=== PATIENT | female | born 1965 | race African-American/Black ===

== ENCOUNTER 2016-12-09 19:34 | Emergency (ER) | payer OTHER ==
[2016-12-09 19:55] VITALS: BP 153/112; PULSE 71; TEMP 97.8; BMI 35.9
--- NOTE | 2016-12-09 21:41 | PDOC ---
[id number]: LT KNEE PAIN/ALLERGIC REACTION Time Seen by Provider: 12/09/16 20:36 History Source: Patient Exam Limitations: No Limitations - History of Present Illness Initial Comments: 12/09/16 21:37 Chief complaint: Intermittent rash to hands, left wrist, left medial area and chest for 4 days also left knee pain with sensation of left knee going to give out for 2 weeks History of present illness: She is a 51-year-old female with a history of asthma , and hypertension and left knee arthroscopic surgery. Patient has had an itchy rash that comes and goes to her bilateral hands, left wrist, chest, and left medial knee for 4 days. She recalls that she ate Mexican food the night before she developed a rash. She also was using a cream called Capsaicin to her left medial knee during this time. Patient also reports having left medial knee pain with a sensation as if her knee is going to give out for the last 2 weeks. Patient reports having arthroscopic surgery with Dr. Hartman 2 years ago. Patient reports that she has been taking Benadryl without relief of itchiness. Patient denies any difficulty swallowing or breathing or any facial swelling. 12/09/16 23:21 Timing/Duration: intermittent Severity: moderate Associated Symptoms: reports: rash (rash pruritic chest, b/l hands, left wrist waxes and wanes for 4 days), other (left medial knee pain with it giving out at times') Past History - Past Medical History Allergies/Adverse Reactions: Allergies Allergy/AdvReac Type Severity Reaction Status Date / Time cephalexin monohydrate Allergy Verified 12/09/16 19:55 [From [employer]] Home Medications: Ambulatory Orders Aspirin [ASA -] 81 mg PO DAILY #0 tab.chew 05/13/13 Hydrochlorothiazide [Hctz -] 25 mg PO DAILY #0 tablet 05/13/13 Albuterol Sulfate Inhaler - [Ventolin HFA Inhaler -] 1 - 2 inh IH Q4H PRN Alprazolam [Xanax -] 0.25 mg PO DAILY 06/11/13 Potassium Chloride [K-Dur] 20 meq PO BID 06/13/13 Nifedipine ER [Procardia XL -] 30 mg PO BID 02/25/15 Losartan Potassium 25 mg PO DAILY 03/09/15 Losartan Potassium 50 mg PO HS 03/09/15 Pnv/Iron,Carb/Om-3/FA/Fat 1 [Multivitamin with Minerals Cap] 1 each PO DAILY Prednisone [Deltasone -] 20 mg PO BID #8 tablet MDD 2 12/09/16 Ranitidine [Zantac -] 150 mg PO BID #8 tablet MDD 2 12/09/16 Anemia: No Asthma: Yes Cancer: No Cardiac Disorders: No CVA: No COPD: No CHF: No Dementia: No Diabetes: No GI Disorders: No Disorders: No HTN: Yes Hypercholesterolemia: No Liver Disease: No Suicide Attempt (Hx): No Seizures: No Thyroid Disease: No - Surgical History Abdominal Surgery: No Appendectomy: No Cardiac Surgery: No Cholecystectomy: No Lung Surgery: No Neurologic Surgery: No Orthopedic Surgery: Yes (KNEE LEFT,CTR BILATERAL) - Psycho/Social/Smoking Cessation Hx Anxiety: No Suicidal Ideation: No Smoking Status: No Smoking History: Never smoked Have you smoked in the past 12 months: No Number of Cigarettes Smoked Daily: 0 Hx Alcohol Use: Yes (SOCIAL) Drug/Substance Use Hx: No Substance Use Type: None Hx Substance Use Treatment: No Review of Systems - Review of Systems Able to Perform ROS?: Yes Constitutional: No: Symptoms Reported HEENTM: No: Symptoms Reported Respiratory: No: Symptoms reported Cardiac (ROS): No: Symptoms Reported ABD/GI: No: Symptoms Reported : No: Symptoms Reported Musculoskeletal: Yes: Joint Pain (left medial knee pain, knee gives out at times for 2 days) Integumentary: Yes: Pruritus (b/l hands, left wrist, left medial knee, chest that comes and goes for 4 days ), Rash Neurological: No: Symptoms reported *Physical Exam - Vital Signs Last Vital Signs Temp Pulse Resp BP Pulse Ox 97.8 F 71 18 153/112 99 12/09/16 19:52 12/09/16 19:52 12/09/16 19:52 12/09/16 19:52 12/09/16 19:52 - Physical Exam General Appearance: Yes: Appropriately Dressed HEENT: positive: Normal ENT Inspection Neck: negative: Lymphadenopathy (R), Lymphadenopathy (L) Respiratory/Chest: positive: Lungs Clear, Normal Breath Sounds. negative: Chest Tender, Respiratory Distress Cardiovascular: positive: Regular Rhythm, Regular Rate, S1, S2 Extremity: positive: Normal Capillary Refill, Normal Inspection, Normal Range of Motion (left knee, no crepitus, negative anterior/posterior drawer) Integumentary: positive: Rash (minimally raised chest approx 4 cm diameter, macules tiny on fingers, left lateral wrist) Neurologic: positive: Fully Oriented, Alert, Normal Response, Responsive Procedures - Consent Consent obtained: From Patient - Splinting Splint Location: Left: Knee Pre-Made Type: knee immobilizer Medical Decision Making - Medical Decision Making 12/09/16 21:39 12/09/16 22:10 She is a 51-year-old female with a history of asthma, and hypertension and left knee arthroscopic surgery. Patient has had an itchy rash that comes and goes to her bilateral hands, left wrist, chest, and left medial knee for 4 days. She recalls that she ate Mexican food the night before she developed a rash. She also was using a cream called Capsaicin to her left medial knee during this time. Patient also reports having left medial knee pain with a sensation as if her knee is going to give out for the last 2 weeks. Patient reports having arthroscopic surgery with Dr. Hartman 2 years ago. Patient reports that she has been taking Benadryl without relief of itchiness. Patient denies any difficulty swallowing or breathing or any facial swelling. allergic urticaria left knee pain with instability of knee PLAN: Prednisone 60 mg by mouth now then 20 mg twice a day 4 days Zantac 150 mg by mouth now then twice a day 4 days Benadryl 25 mg by mouth now then every 4-6 hours as needed for itchiness Left knee immobilizer Patient to follow up with Dr. Hartman in 2 days 12/09/16 22:11 12/09/16 23:21 *DC/Admit/Observation/Transfer Diagnosis at time of Disposition: Allergic urticaria Knee instability Qualifiers: Laterality: left Qualified Code(s): M25.362 - Other instability, left knee - Discharge Dispostion Disposition: HOME Condition at time of disposition: Stable - Prescriptions Prescriptions: Prednisone [Deltasone -] 20 mg PO BID #8 tablet MDD 2 Ranitidine [Zantac -] 150 mg PO BID #8 tablet MDD 2 - Referrals Referrals: STAFF,NOT ON [Primary Care Provider] - Gaurang Hartman MD [Staff Physician] - Jarrod Rivas MD [Staff Physician] - - Patient Instructions Additional Instructions: FOLLOW UP orthopedist in 2 days Wear knee immobilizer during the day for stability to left leg Follow-up with your primary care provider within the next 2 days Follow-up with ear nose and throat Dr. Rivas for allergy testing Return here if any difficulty breathing or swallowing or any facial swelling Take Benadryl 25 mg every 4-6 hours as needed for itchiness may buy over-the- counter Patient voiced understanding of discharge instructions and all questions were answered
[2016-12-09] MEDS ORDERED: predniSONE 20 MG TABLET (UD) PO ONE (21:42)
[2016-12-09] MEDS ORDERED: RANITIDINE HCL 150 MG TABLET (FP) PO ONE (21:42)
[2016-12-09] MEDS ORDERED: diphenhydrAMINE HCL 25 MG CAPSULE (FP) PO ONE ×2 (21:42→21:45)
[2016-12-09] MEDS ORDERED: RANITIDINE HCL 150 MG TABLET (FP) ONE (21:44)
[2016-12-09] MEDS ORDERED: predniSONE 20 MG TABLET (UD) ONE (21:45)
== END 2016-12-09 22:22 | disposition home or self-care (01) ==
LOC: JERFT 19:34
PROC: 2W3MX1Z Immobilization of Left Lower Extremity using Splint (ICD-10-PCS; principal; 2016-12-09)
DX: L50.0 Allergic urticaria (principal); M25.362 Other instability, left knee; I10 Essential (primary) hypertension; J45.909 Unspecified asthma, uncomplicated
CPT/HCPCS: 29530; 99281-25

== ENCOUNTER 2017-06-21 16:45 | Emergency (ER) | payer OTHER ==
[2017-06-21 17:39] LABS: BASOPHIL 0.5 % (0-2.0); EOSINOPHIL 0.2 % (0-4.5); MCH 26.9 pg (25.7-33.7); MEAN CELL VOLUME 81.6 fl (80-96); MEAN PLT VOLUME 9.1 fl (7.5-11.1); NEUTROPHILS 75.6 % (42.8-82.8); PLATELET COUNT 288 K/MM3 (134-434); RDW 17.1 % (11.6-15.6); WHITE BLOOD COUNT 7.3 K/mm3 (4.0-10.0)
[2017-06-21] MEDS ORDERED: SODIUM CHLORIDE 500 ML IV STA (17:41)
[2017-06-21 17:42] VITALS: TEMP 98.1; BMI 39.3
[2017-06-21 18:02] LABS: INR 1.15 (0.82-1.09); PROTHROMBIN TIME (PATIENT) 12.7 SEC (9.98-11.88)
[2017-06-21 18:05] LABS: ALBUMIN 3.8 g/dl (3.4-5.0); ANION GAP 4 (8-16); BILIRUBIN,TOTAL 0.3 mg/dL (0.2-1.0); CALCIUM 8.9 mg/dL (8.5-10.1); CO2 29 mmol/L (21-32); CREATININE 0.9 mg/dL (0.55-1.02); GLUCOSE,RANDOM 103 mg/dL (74-106); SGOT/AST 16 U/L (15-37); SGPT/ALT 22 U/L (12-78); TOT PROT 7.6 g/dl (6.4-8.2)
[2017-06-21 18:07] LABS: ALK PHOS 76 U/L (45-117); CPK 235 IU/L (26-192); TROPONIN I 0.03 ng/ml (0.00-0.05)
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
[2017-06-21] MEDS ORDERED: POTASSIUM CHLORIDE TABS 20 MEQ TABLET.ER (FP) PO ONE ×2 (18:35→18:50)
[2017-06-21 20:20] VITALS: BP 154/106; PULSE 65
--- NOTE | 2017-06-21 21:38 | PDOC ---
*Physical Exam - Vital Signs Last Vital Signs Temp Pulse Resp BP Pulse Ox 98.1 F 65 22 154/106 100 06/21/17 17:25 06/21/17 20:19 06/21/17 20:19 06/21/17 20:19 06/21/17 20:19 ED Treatment Course - LABORATORY CBC & Chemistry Diagram: 06/21/17 17:30 06/21/17 17:30 - ADDITIONAL ORDERS Additional order review: Laboratory Results 06/21/17 06/21/17 17:30 17:30 INR 1.15 H Sodium 141 Potassium 3.2 L Chloride 108 H Carbon Dioxide 29 Anion Gap 4 L BUN 11 Creatinine 0.9 D Creat Clearance w eGFR > 60 Random Glucose 103 Calcium 8.9 Total Bilirubin 0.3 D AST 16 D ALT 22 Alkaline Phosphatase 76 Creatine Kinase 235 H Creatine Kinase Index CK-MB (CK-2) < 1.000 Troponin I 0.03 Total Protein 7.6 Albumin 3.8 06/21/17 17:30 RBC 4.45 MCV 81.6 MCHC 33.0 RDW 17.1 H MPV 9.1 Neutrophils % 75.6 Lymphocytes % 18.6 D Monocytes % 5.1 Eosinophils % 0.2 Basophils % 0.5 - Medications Given in the ED: ED Medications Discontinued Medications Generic Name Dose Route Start Last Admin Trade Name Chrisq PRN Reason Stop Dose Admin Sodium Chloride 500 mls @ 500 mls/hr 06/21/17 17:41 06/21/17 18:23 Normal Saline - IV 06/21/17 18:40 500 mls/hr ASDIR STA Administration Potassium Chloride 40 meq 06/21/17 18:35 06/21/17 19:15 K-Dur - PO 06/21/17 18:36 40 meq ONCE ONE Administration Medical Decision Making - Medical Decision Making 06/21/17 21:37 agree with care from Dr. Lucien Atkinson. *DC/Admit/Observation/Transfer Diagnosis at time of Disposition: Vasovagal episode - Discharge Dispostion Disposition: HOME Condition at time of disposition: Stable Admit: No - Referrals Referrals: Etta Sanz MD [Primary Care Provider] - - Patient Instructions Printed Discharge Instructions: DI for Syncope in Adults (Fainting) Additional Instructions: The workup for your syncopal episode did not reveal a cardiac etiology. Given the history of the episode in light of the negative workup, it seems likely that it was vasovagal. In addition, the XR of your left knee showed no evidence of fracture. At home, drink plenty of fluids and take it easy for a day or two. If you develop new onset chest pain or have any concerning symptoms, return to the ED. Please follow up with your PMD within the next few days. - Post Discharge Activity
--- NOTE | 2017-06-22 09:30 | EKG ---
Test Reason : Blood Pressure : / mmHG Vent. Rate : 070 BPM Atrial Rate : 070 BPM P-R Int : 148 ms QRS Dur : 088 ms QT Int : 416 ms P-R-T Axes : 003 -23 021 degrees QTc Int : 449 ms POOR DATA QUALITY, INTERPRETATION MAY BE ADVERSELY AFFECTED NORMAL SINUS RHYTHM MINIMAL VOLTAGE CRITERIA FOR LVH, MAY BE NORMAL VARIANT NONSPECIFIC T WAVE ABNORMALITY ABNORMAL ECG WHEN COMPARED WITH ECG OF 06-MAR-2015 14:11, NONSPECIFIC T WAVE ABNORMALITY NOW EVIDENT IN ANTERIOR LEADS Confirmed by MARIAELENA GONCALVES MD ([id number]) on 06/22/2017 9:30:00 AM Referred By: Confirmed By:MARIAELENA GONCALVES MD
== END 2017-06-21 21:47 | disposition home or self-care (01) ==
LOC: JER 16:45
PROC: 3E0337Z Introduction of Electrolytic and Water Balance Substance into Peripheral Vein, Percutaneous Approach (ICD-10-PCS; principal; 2017-06-21)
DX: R55 Syncope and collapse (principal); I10 Essential (primary) hypertension; F41.0 Panic disorder [episodic paroxysmal anxiety]; J45.909 Unspecified asthma, uncomplicated
CPT/HCPCS: 36415; 71010-TC; 73560-TC-LT; 80053; 82553; 84484; 85025; 85610; 93005; 93010; 96360; 99285-25

== ENCOUNTER 2017-07-17 19:41 | Emergency (ER) | payer OTHER ==
[2017-07-17 19:54] VITALS: TEMP 98.3; BMI 38.4
--- NOTE | 2017-07-17 20:48 | PDOC ---
History of Present Illness - General History Source: Patient Exam Limitations: No Limitations - History of Present Illness Initial Comments: 07/17/17 20:50 Patient is a 51 year old female with significant past medical history of HTN, obesity, poor dentition presenting with pain and swelling at the right side of the face. Patient notes that the symptoms are intermittent. She reports hx of syncope in the past. She also notes that she had an episode of lightheadedness last sunday and reports associated flashing lights, dizziness and got a cab and went home and was assisted by her daughter to get inside the house. Patient saw Dr. Oswald the next day who called meat soaker Dr. Benoit who scheduled a nuclear stress test on July 23, 2017. Patient is now taking new medication as per meat soaker. Patient reports numbness and fullness under the right eye with associated pain. 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 PSH - left knee, bilateral carpal tunnel <Paulette Patel - Last Filed: 07/17/17 20:50> <Sarah Leal - Last Filed: 07/18/17 01:27> - General Chief Complaint: CVA/TIA Stated Complaint: DROOPING FACE Time Seen by Provider: 07/17/17 20:06 Past History <Paulette Patel - Last Filed: 07/17/17 20:50> - Past Medical History Anemia: No Asthma: Yes Cancer: No Cardiac Disorders: No CVA: No COPD: No CHF: No Dementia: No Diabetes: No GI Disorders: No Disorders: No HTN: Yes Hypercholesterolemia: No Liver Disease: No Psychiatric Problems: Yes (ANXIETY) Suicide Attempt (Hx): No Seizures: No Thyroid Disease: No - Surgical History Abdominal Surgery: No Appendectomy: No Cardiac Surgery: No Cholecystectomy: No Lung Surgery: No Neurologic Surgery: No Orthopedic Surgery: Yes (KNEE LEFT,CTR BILATERAL) - Psycho/Social/Smoking Cessation Hx Anxiety: No Suicidal Ideation: No Smoking Status: No Smoking History: Never smoked Have you smoked in the past 12 months: No Number of Cigarettes Smoked Daily: 0 Information on smoking cessation initiated: No Hx Alcohol Use: No Drug/Substance Use Hx: No Substance Use Type: None Hx Substance Use Treatment: No <Sarah Leal - Last Filed: 07/18/17 01:27> - Past Medical History Allergies/Adverse Reactions: Allergies Allergy/AdvReac Type Severity Reaction Status Date / Time cephalexin monohydrate AdvReac Severe Nausea Verified 06/21/17 17:11 [From [facility]] Home Medications: Ambulatory Orders Aspirin [ASA -] 81 mg PO DAILY #0 tab.chew 05/13/13 Hydrochlorothiazide [Hctz -] 25 mg PO DAILY #0 tablet 05/13/13 Albuterol Sulfate Inhaler - [Ventolin HFA Inhaler -] 1 - 2 inh IH Q4H PRN Alprazolam [Xanax -] 0.25 mg PO DAILY 06/11/13 Potassium Chloride [K-Dur] 20 meq PO BID 06/13/13 Nifedipine ER [Procardia XL -] 30 mg PO BID 02/25/15 Ranitidine [Zantac -] 150 mg PO BID #8 tablet MDD 2 12/09/16 Hydralazine HCl [Apresoline -] 25 mg PO TID 07/17/17 Isosorbide Mononitrate [Imdur -] 30 mg PO DAILY 07/17/17 Review of Systems - Review of Systems Able to Perform ROS?: Yes Comments:: 07/17/17 20:51 CONSTITUTIONAL: Absent: fever, chills, diaphoresis, generalized weakness, malaise, loss of appetite HEENT: present: right sided facial pain and swelling Absent: rhinorrhea, nasal congestion, throat pain, throat swelling, difficulty swallowing, mouth swelling, ear pain, eye pain, visual Changes CARDIOVASCULAR: Absent: chest pain, syncope, palpitations, irregular heart rate, lightheadedness , peripheral edema RESPIRATORY: Absent: cough, shortness of breath, dyspnea with exertion, orthopnea, wheezing, stridor, hemoptysis GASTROINTESTINAL: Absent: abdominal pain, abdominal distension, nausea, vomiting, diarrhea, constipation, melena, hematochezia GENITOURINARY: Absent: dysuria, frequency, urgency, hesitancy, hematuria, flank pain, genital pain MUSCULOSKELETAL: Absent: myalgia, arthralgia, joint swelling SKIN: Absent: rash, itching, pallor HEMATOLOGIC/IMMUNOLOGIC: Absent: easy bleeding, easy bruising, lymphadenopathy, frequent infections ENDOCRINE: Absent: unexplained weight gain, unexplained weight loss, heat intolerance, cold intolerance NEUROLOGIC: Absent: headache, focal weakness or paresthesias, dizziness, unsteady gait, seizure, mental status changes, bladder or bowel incontinence PSYCHIATRIC: Absent: anxiety, depression, suicidal or homicidal ideation, hallucinations. <Paulette Patel - Last Filed: 07/17/17 20:50> *Physical Exam - Vital Signs Last Vital Signs Temp Pulse Resp BP Pulse Ox 98.3 F 83 19 153/114 99 07/17/17 19:52 07/17/17 19:52 07/17/17 19:52 07/17/17 19:52 07/17/17 19:52 - Physical Exam Comments: 07/17/17 20:51 GENERAL: Well developed, well nourished. Awake and alert. No acute distress. HEENT: (+)Mild right zygomatic fulness, Face is symmetrical, No obvious facial droop. Normocephalic, atraumatic. PERRLA, EOMI. No conjunctival pallor. Sclera are non- icteric. Moist mucous membranes. Oropharynx is clear. NECK: Supple. Full ROM. No JVD. Carotid pulses 2+ and symmetric, without bruits. No thyromegaly. No lymphadenopathy. CARDIOVASCULAR: Regular rate and rhythm. No murmurs, rubs, or gallops. Distal pulses are 2+ and symmetric. PULMONARY: No evidence of respiratory distress. Lungs clear to auscultation bilaterally. No wheezing, rales or rhonchi. ABDOMINAL: +obese. Soft. Non-tender. Non-distended. No rebound or guarding. No organomegaly. Normoactive bowel sounds. MUSCULOSKELETAL Normal range of motion at all joints. No bony deformities or tenderness. No CVA tenderness. EXTREMITIES: No cyanosis. No clubbing. No edema. No calf tenderness. SKIN: Warm and dry. Normal capillary refill. No rashes. No jaundice. NEUROLOGICAL: Alert, awake, appropriate. Cranial nerves 2-12 intact. PSYCHIATRIC: Cooperative. Good eye contact. Appropriate mood and affect. <Paulette Patel - Last Filed: 07/17/17 20:50> - Vital Signs Last Vital Signs Temp Pulse Resp BP Pulse Ox 98.3 F 83 19 153/114 99 07/17/17 19:52 07/17/17 19:52 07/17/17 19:52 07/17/17 19:52 07/17/17 19:52 <Sarah Leal - Last Filed: 07/18/17 01:27> ED Treatment Course - LABORATORY CBC & Chemistry Diagram: 07/17/17 21:05 07/17/17 21:05 <Sarah Leal - Last Filed: 07/18/17 01:27> Medical Decision Making - Medical Decision Making 07/18/17 00:40 51-year-old female presents with history of hypertension, obesity. She said that she had an episode of flashing lights and weakness last week. She saw her primary doctor, Dr. Saldaña for the next day. He appointment with Dr. Dubois for a stress test on July 23. She presents this evening with only with no gross focal neural deficits. She does have some mild right facial swelling and complaining of pain in that area. She has no ataxia, she has no confusion, she has no slurred speech, extremity weakness, no current tingling and numbness in her extremities. No field cuts or diplopia NIH stroke scale is 0 CAT scan of the head was negative for any hemorrhage, negative for mass, negative for infarct, negative for edema or shift or herniation. Osseous structures are intact <Sarah Leal - Last Filed: 07/18/17 01:27> *DC/Admit/Observation/Transfer - Attestations Scribe Attestion: 07/17/17 20:55 Documentation prepared by SHIVANI Lazar, acting as special forces medical sergeant for Sarah Leal MD. <Paulette Patel - Last Filed: 07/17/17 20:50> <Sarah Leal - Last Filed: 07/18/17 01:27> Diagnosis at time of Disposition: Essential hypertension, Dental abscess, Hypokalemia Urinary tract infection Qualifiers: Urinary tract infection type: site unspecified Hematuria presence: without hematuria Qualified Code(s): N39.0 - Urinary tract infection, site not specified - Discharge Dispostion Disposition: HOME Condition at time of disposition: Stable - Referrals Referrals: Jhonathan Oswald [Primary Care Provider] - - Patient Instructions Printed Discharge Instructions: DI for High Blood Pressure, DI for Tooth Decay , DI for Hypokalemia, DI for Urinary Tract Infection (UTI) Additional Instructions: Please keep your appointment with your doctor Follow up with your dentist specialty department supervisor your antibiotics at your pharmacy Please continue to take your blood pressure medications
[2017-07-17 21:10] LABS: EOSINOPHIL 0.5 % (0-4.5); MCH 26.5 pg (25.7-33.7); MCHC 32.7 g/dl (32.0-36.0); MEAN CELL VOLUME 80.9 fl (80-96); MEAN PLT VOLUME 8.8 fl (7.5-11.1); PLATELET COUNT 309 K/MM3 (134-434); RDW 16.9 % (11.6-15.6); WHITE BLOOD COUNT 7.9 K/mm3 (4.0-10.0)
[2017-07-17 21:15] LABS: URINE APPEARANCE CLOUDY; URINE BILIRUBIN NEGATIVE (NEGATIVE); URINE BLOOD 2+ (NEGATIVE); URINE COLOR YELLOW; URINE GLUCOSE (UA) NEGATIVE (NEGATIVE); URINE KETONE NEGATIVE (NEGATIVE); URINE NITRITE NEGATIVE (NEGATIVE); URINE UROBILINOGEN NEGATIVE mg/dL (0.2-1.0)
[2017-07-17 21:23] LABS: URINE LEUK ESTERASE 3+ (NEGATIVE); URINE PROTEIN 1+ (NEGATIVE)
[2017-07-17 21:35] LABS: URINE BACTERIA MODERATE /hpf (NONE SEEN); URINE MUCUS RARE; URINE RBC 5 /hpf (0-3); URINE WBC 76 /hpf (3-5)
[2017-07-17 21:37] LABS: ALBUMIN 3.7 g/dl (3.4-5.0); ANION GAP 7 (8-16); BILIRUBIN,TOTAL 0.3 mg/dL (0.2-1.0); CALCIUM 8.8 mg/dL (8.5-10.1); CO2 30 mmol/L (21-32); CREATININE 0.9 mg/dL (0.55-1.02); GLUCOSE,RANDOM 85 mg/dL (74-106); SGOT/AST 10 U/L (15-37); SGPT/ALT 21 U/L (12-78); TOT PROT 7.4 g/dl (6.4-8.2)
[2017-07-17 21:40] LABS: ALK PHOS 80 U/L (45-117); CPK 190 IU/L (26-192); TROPONIN I 0.04 ng/ml (0.00-0.05)
[2017-07-17 21:43] LABS: INR 1.09 (0.82-1.09)
[2017-07-18] MEDS ORDERED: POTASSIUM CHLORIDE TABS 20 MEQ TABLET.ER (FP) PO ONE ×2 (00:19→00:24)
[2017-07-18] MEDS ORDERED: hydrALAZINE HCL 25 MG TABLET (FP) PO ONE (00:49)
[2017-07-18 00:51] VITALS: BP 155/94; PULSE 68
[2017-07-18] MEDS ORDERED: hydrALAZINE HCL 25 MG TABLET (FP) ONE (00:53)
[2017-07-18] MEDS ORDERED: SULFAMETHOXAZOLE/TRIMETHOPRIM 800MG/160MG D.S. TABLET ONE (01:57)
[2017-07-18] MEDS ORDERED: SULFAMETHOXAZOLE/TRIMETHOPRIM 800MG/160MG D.S. TABLET PO ONE (02:00)
[2017-07-18] MEDS ORDERED: NIFEdipine 10 MG CAPSULE (FP) PO SCH (06:00)
--- NOTE | 2017-07-18 14:58 | EKG ---
Test Reason : Blood Pressure : / mmHG Vent. Rate : 072 BPM Atrial Rate : 072 BPM P-R Int : 148 ms QRS Dur : 086 ms QT Int : 374 ms P-R-T Axes : 008 -14 -08 degrees QTc Int : 409 ms NORMAL SINUS RHYTHM MINIMAL VOLTAGE CRITERIA FOR LVH, MAY BE NORMAL VARIANT POSSIBLE ANTERIOR INFARCT , AGE UNDETERMINED ABNORMAL ECG WHEN COMPARED WITH ECG OF 21-JUN-2017 16:59, NO SIGNIFICANT CHANGE WAS FOUND Confirmed by PATRICIA TERRY MD ([id number]) on 07/18/2017 2:58:21 PM Referred By: Confirmed By:PATRICIA TERYR MD
== END 2017-07-18 02:05 | disposition home or self-care (01) ==
LOC: JER 19:41
DX: I10 Essential (primary) hypertension (principal); N39.0 Urinary tract infection, site not specified; E87.6 Hypokalemia; K04.7 Periapical abscess without sinus; F41.9 Anxiety disorder, unspecified; E66.9 Obesity, unspecified; Z68.38 Body mass index [BMI] 38.0-38.9, adult
CPT/HCPCS: 36415; 70450-TC; 70486-TC; 80053; 81003; 81015; 82553; 84484; 84703; 85025; 85610; 86618; 93005; 93010; 99284-25

== ENCOUNTER 2018-12-15 15:59 | Emergency (ER) | payer OTHER ==
[2018-12-15 16:31] VITALS: BP 161/97; PULSE 82; TEMP 97.9; BMI 40.3
[2018-12-15] MEDS ORDERED: CYCLOBENZAPRINE HCL 10 MG TABLET (FP) PO ONE (18:02)
[2018-12-15] MEDS ORDERED: KETOROLAC TROMETHAMINE 60 MG/2 ML VIAL IM ONE (18:02)
--- NOTE | 2018-12-15 18:09 | PDOC ---
History of Present Illness - General Chief Complaint: Pain Stated Complaint: BACK / NECK PAIN Time Seen by Provider: 12/15/18 17:56 History Source: Patient Exam Limitations: Clinical Condition - History of Present Illness Initial Comments: 12/15/18 18:03 Patient with no significant with no significant PMhx present with complains of severe pains to right posterior shoulder and upper after returning from vacation yesterday and carrying her luggage. report taking motrin and aleve but pain still persists. Denies numbness and tingling sensation. Denies previous shoulder injury. Denies any other symptoms Timing/Duration: 24 hours Past History - Past Medical History Allergies/Adverse Reactions: Allergies Allergy/AdvReac Type Severity Reaction Status Date / Time cephalexin monohydrate AdvReac Severe Nausea Verified 12/15/18 16:31 [From [email or web address]] Home Medications: Ambulatory Orders Aspirin [ASA -] 81 mg PO DAILY #0 tab.chew 05/13/13 Hydrochlorothiazide [Hctz -] 25 mg PO DAILY #0 tablet 05/13/13 Albuterol Sulfate Inhaler - [Ventolin HFA Inhaler -] 1 - 2 inh IH Q4H PRN Alprazolam [Xanax -] 0.25 mg PO DAILY 06/11/13 Potassium Chloride [K-Dur] 20 meq PO BID 06/13/13 Nifedipine ER [Procardia XL -] 30 mg PO BID 02/25/15 Ranitidine [Zantac -] 150 mg PO BID #8 tablet MDD 2 12/09/16 Isosorbide Mononitrate [Imdur -] 30 mg PO DAILY 07/17/17 hydrALAZINE HCL [Apresoline -] 25 mg PO TID 07/17/17 Sulfamethoxazole/Trimethoprim [Bactrim Ds -] 1 tab PO BID #14 tablet 07/18/17 Amoxicillin/Potassium Clav [Augmentin 875-125 Tablet] 1 each PO ASDIR 12/15/18 Methocarbamol [Robaxin -] 500 mg PO TID PRN #21 tablet 12/15/18 Methylprednisolone [Medrol Dose Matthew] 4 mg PO ASDIR #21 tablet 12/15/18 Anemia: No Asthma: Yes Cancer: No Cardiac Disorders: No CVA: No COPD: No CHF: No Dementia: No Diabetes: No GI Disorders: No Disorders: No HTN: Yes Hypercholesterolemia: No Liver Disease: No Psychiatric Problems: Yes (ANXIETY) Seizures: No Thyroid Disease: No - Surgical History Abdominal Surgery: No Appendectomy: No Cardiac Surgery: No Cholecystectomy: No Lung Surgery: No Neurologic Surgery: No Orthopedic Surgery: Yes (KNEE LEFT,CTR BILATERAL) - Suicide/Smoking/Psychosocial Hx Smoking Status: No Smoking History: Never smoked Have you smoked in the past 12 months: No Number of Cigarettes Smoked Daily: 0 Hx Alcohol Use: No Drug/Substance Use Hx: No Substance Use Type: None Hx Substance Use Treatment: No Review of Systems - Review of Systems Able to Perform ROS?: Yes Is the patient limited Kazakh proficient: No Constitutional: No: Weakness HEENTM: No: Symptoms Reported Respiratory: No: Symptoms reported ABD/GI: No: Symptoms Reported Musculoskeletal: Yes: See HPI, Muscle Pain (posterior right shoulder and upper arm), Neck Pain (lateral right side of neck). No: Muscle Weakness All Other Systems: Reviewed and Negative *Physical Exam - Vital Signs Last Vital Signs Temp Pulse Resp BP Pulse Ox 97.9 F 82 18 161/97 97 12/15/18 16:27 12/15/18 16:27 12/15/18 16:27 12/15/18 16:27 12/15/18 16:27 - Physical Exam General Appearance: Yes: Nourished, Appropriately Dressed. No: Apparent Distress HEENT: positive: Normal ENT Inspection Neck: positive: Supple. negative: Tender, Trachea midline Respiratory/Chest: negative: Respiratory Distress, Accessory Muscle Use Musculoskeletal: positive: Normal Inspection, Other (moderate point tenderness over spine of right scapula and lateral deltoid of right shoulder. 5/5 muscle strength of right shoulder. negative arm drop test of right shoulder). negative : Decreased Range of Motion Extremity: positive: Normal Inspection, Normal Range of Motion Neurologic: positive: Fully Oriented, Alert Moderate Sedation - Procedure Monitoring Vital Signs: Procedure Monitoring Vital Signs Temperature 97.9 F 12/15/18 16:27 Pulse Rate 82 12/15/18 16:27 Respiratory Rate 18 12/15/18 16:27 Blood Pressure 161/97 12/15/18 16:27 O2 Sat by Pulse Oximetry (%) 97 12/15/18 16:27 ED Treatment Course - RADIOLOGY Radiology Studies Ordered: Category Date Time Status HUMERUS-RIGHT [RAD] Stat Radiology 12/15/18 18:02 Ordered SHOULDER-RIGHT [RAD] Stat Radiology 12/15/18 18:02 Ordered Medical Decision Making - Medical Decision Making 12/15/18 18:12 Patient with no significant with no significant PMhx present with complains of severe pains to right posterior shoulder and upper after returning from vacation yesterday and carrying her luggage. report taking motrin and aleve but pain still persists. Exam significant for tenderness to posterior spine of scapula and deltoid muscle of right shoulder with no weakness to shoulder on exam. Toradol 60mg IM and flexiril 10mg PO ordered. X-rays of right shoulder and humerus ordered with r/o any acute Pathology. symptoms likely shoulder strain and pt will be discharged on NSAIDS and muscle relaxer with orthopedics f/u if negative x-rays 12/15/18 18:28 x-ray of shoulder and humerus shows no acute pathology. symptoms likely muscle strain and stable for discharge with orthopedics follow-u *DC/Admit/Observation/Transfer Diagnosis at time of Disposition: Strain of right shoulder Qualifiers: Encounter type: initial encounter Qualified Code(s): S46.911A - Strain of unspecified muscle, fascia and tendon at shoulder and upper arm level, right arm , initial encounter - Discharge Dispostion Disposition: HOME Condition at time of disposition: Stable Decision to Admit order: No - Prescriptions Prescriptions: Methocarbamol [Robaxin -] 500 mg PO TID PRN #21 tablet PRN Reason: shoulder pain Methylprednisolone [Medrol Dose Matthew] 4 mg PO ASDIR #21 tablet - Referrals Referrals: Jozef Mathews DO [Staff Physician] - - Patient Instructions Printed Discharge Instructions: Shoulder Sprain Additional Instructions: Your x-rays shows no dislocation . symptoms is likely from muscle strain. Take medications as prescribed. continue with heat therapy as needed. follow-up with referred orthopedics if symptoms persist for more than 4 days - Post Discharge Activity
[2018-12-15] MEDS ORDERED: CYCLOBENZAPRINE HCL 10 MG TABLET (FP) ONE (18:14)
[2018-12-15] MEDS ORDERED: KETOROLAC TROMETHAMINE 60 MG/2 ML VIAL ONE (18:14)
== END 2018-12-15 18:49 | disposition home or self-care (01) ==
LOC: JERFT 15:59
PROC: 3E0233Z Introduction of Anti-inflammatory into Muscle, Percutaneous Approach (ICD-10-PCS; principal; 2018-12-15)
DX: S46.811A Strain of other muscles, fascia and tendons at shoulder and upper arm level, right arm, initial encounter (principal); X50.0XXA Overexertion from strenuous movement or load, initial encounter; Y93.89 Activity, other specified; Y92.89 Other specified places as the place of occurrence of the external cause; Y99.8 Other external cause status; I10 Essential (primary) hypertension; Z87.09 Personal history of other diseases of the respiratory system; Z86.59 Personal history of other mental and behavioral disorders
CPT/HCPCS: 73030-TC-RT-FY; 73060-TC-RT-FY; 99281-25

== ENCOUNTER 2019-02-03 21:03 | Observation (INO) | payer OTHER ==
--- NOTE | 2019-02-03 22:35 | PDOC ---
History of Present Illness - General Chief Complaint: Chest Pain Stated Complaint: TIGHTNESS IN CHEST - History of Present Illness Initial Comments: The pt is a 53F w/ a history of HTN, asthma, and insomnia who presents for evaluation of 10 days of acute on chronic shortness of breath. The pt reports that she has been experiencing increasing RHODES w/ occasional associated chest tightness/pressure. States that she has been using her home inhaler and nebulizer with minimal relief. At baseline, the pt is able to climb 1 flight of stairs before resting but is now having to rest mid-flight. Endorses dry cough. She also reports intermittent episodes of dizziness which she thinks may be associated with her HTN medications. However, her regimen has been difficult to establish and she and her PCP are actively working to find the most efficacious regimen. Denies falls or LOC. Denies chest pain or SOB being associated with dizziness episodes. Endorses intermittent subjective fevers but also reports being pre-menopausal. States that her son had PNA recently and is also concerned she may have PNA as well. PCP: Dr. Oswald Cardiology: Dr. Benoit 02/03/19 22:24 Past History - Past Medical History Allergies/Adverse Reactions: Allergies Allergy/AdvReac Type Severity Reaction Status Date / Time cephalexin monohydrate AdvReac Severe Nausea Verified 02/03/19 21:10 [From [facility]] Home Medications: Ambulatory Orders Aspirin [ASA -] 81 mg PO DAILY #0 tab.chew 05/13/13 Hydrochlorothiazide [Hctz -] 25 mg PO DAILY #0 tablet 05/13/13 Albuterol Sulfate Inhaler - [Ventolin HFA Inhaler -] 1 - 2 inh IH Q4H PRN Alprazolam [Xanax -] 0.25 mg PO DAILY 06/11/13 Potassium Chloride [K-Dur] 20 meq PO BID 06/13/13 Nifedipine ER [Procardia XL -] 30 mg PO BID 02/25/15 Ranitidine [Zantac -] 150 mg PO BID #8 tablet MDD 2 12/09/16 Isosorbide Mononitrate [Imdur -] 30 mg PO DAILY 07/17/17 hydrALAZINE HCL [Apresoline -] 25 mg PO TID 07/17/17 Sulfamethoxazole/Trimethoprim [Bactrim Ds -] 1 tab PO BID #14 tablet 07/18/17 Amoxicillin/Potassium Clav [Augmentin 875-125 Tablet] 1 each PO ASDIR 12/15/18 Methocarbamol [Robaxin -] 500 mg PO TID PRN #21 tablet 12/15/18 Methylprednisolone [Medrol Dose Matthew] 4 mg PO ASDIR #21 tablet 12/15/18 Anemia: No Asthma: Yes Cancer: No Cardiac Disorders: No CVA: No COPD: No CHF: No Dementia: No Diabetes: No GI Disorders: No Disorders: No HTN: Yes Hypercholesterolemia: No Liver Disease: No Psychiatric Problems: Yes (ANXIETY) Seizures: No Thyroid Disease: No - Surgical History Abdominal Surgery: No Appendectomy: No Cardiac Surgery: No Cholecystectomy: No Lung Surgery: No Neurologic Surgery: No Orthopedic Surgery: Yes (KNEE LEFT,CTR BILATERAL) - Suicide/Smoking/Psychosocial Hx Smoking Status: No Smoking History: Never smoked Have you smoked in the past 12 months: No Number of Cigarettes Smoked Daily: 0 Information on smoking cessation initiated: No Hx Alcohol Use: Yes Drug/Substance Use Hx: No Substance Use Type: None Hx Substance Use Treatment: No Review of Systems - Review of Systems Able to Perform ROS?: Yes Comments:: GENERAL/CONSTITUTIONAL: No chills. No weakness HEAD, EYES, EARS, NOSE AND THROAT: No change in vision. No ear pain or discharge. No sore throat CARDIOVASCULAR: +SOB RESPIRATORY: Denies hemoptysis GASTROINTESTINAL: No vomiting, diarrhea or constipation GENITOURINARY: No dysuria, frequency, or change in urination MUSCULOSKELETAL: No joint or muscle swelling or pain. No neck or back pain SKIN: No rash NEUROLOGIC: No headache, vertigo, loss of consciousness, or change in strength/ sensation ENDOCRINE: +polyuria, but most recent screen for DM neg and on HCTZ PRN HEMATOLOGIC/LYMPHATIC: No anemia, easy bleeding, or history of blood clots ALLERGIC/IMMUNOLOGIC: No hives or skin allergy 02/03/19 22:35 Is the patient limited Armenian proficient: No *Physical Exam - Vital Signs Last Vital Signs Temp Pulse Resp BP Pulse Ox 97.8 F 68 18 173/85 H 98 02/03/19 21:07 02/03/19 21:07 02/03/19 21:07 02/03/19 21:07 02/03/19 21:07 - Physical Exam Comments: GENERAL: Awake, alert, and oriented to person/place/time, in no acute distress HEAD: No signs of trauma, normocephalic, atraumatic EYES: PERRLA, EOMI, sclera anicteric, conjunctiva clear ENT: Hearing grossly normal, b/l TMs normal with small amount of cotton in each auditory canal, nares patent, oropharynx clear without exudates. Moist mucosa LUNGS: No distress, speaks full sentences, clear to auscultation bilaterally HEART: Regular rate and rhythm, normal S1 and S2, no murmurs appreciated, peripheral pulses normal and equal bilaterally ABDOMEN: Soft, nontender, normoactive bowel sounds. No guarding, no rebound. No masses EXTREMITIES: Normal inspection, Normal range of motion, no edema. No clubbing or cyanosis NEUROLOGICAL: Cranial nerves II through XII grossly intact. Normal speech, normal gait, no focal sensorimotor deficits SKIN: Warm, Dry 02/03/19 22:37 ED Treatment Course - LABORATORY CBC & Chemistry Diagram: 02/03/19 22:35 02/03/19 22:35 - RADIOLOGY Radiology Studies Ordered: Category Date Time Status CHEST PA & LAT [RAD] Stat Radiology 02/03/19 22:22 Ordered Medical Decision Making - Medical Decision Making The pt is a 53F w/ a history of HTN, asthma, obesity, and anxiety who presents for 10 days of acute on chronic RHODES w/ intermittent associated chest tightness that is not the exact same as her usual asthma tightness. Symptoms not alleviated by inhaler and nebulizer. ED Course CMP, CBC, Trop I, D-dimer CXR ECG 02/03/19 22:52 D-dimer neg No leukocytosis No anemia No OMEGA LFTs wnl Trop I 0.07, denies current chest pain or shortness of breath Will repeat Trop at 0135 02/03/19 23:35 Pt signed out to Dr. Caal, history and findings to this point discussed and all questions answered 02/04/19 00:08 *DC/Admit/Observation/Transfer Diagnosis at time of Disposition: Shortness of breath - Referrals Referrals: Jhonathan Oswald [Primary Care Provider] - - Patient Instructions - Post Discharge Activity
--- NOTE | 2019-02-03 22:38 | PDOC ---
Attending Attestation - Resident Resident Name: Kiran Huertas - ED Attending Attestation I have performed the following: I have examined & evaluated the patient, The case was reviewed & discussed with the resident, I agree w/resident's findings & plan, Exceptions are as noted - Medical Decision Making 02/04/19 00:51 Obese 53-year-old female has experienced increasing dyspnea initially was upon exertion but now she is short of breath at rest. Dr. 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 She notes using her rescue inhaler and nebulizer, with minimal relief. She denies recent nausea, vomit, diarrhea or constipation. She denies recent dysuria, frequency, urgency or hematuria. Allergies: Cephalexin monohydrate. Primary Care Physician: Dr. Oswald - Physicial Exam PE: 02/04/19 00:53 GENERAL: Well-appearing, well-nourished. No apparent distress. HEENT: Normocephalic, atraumatic. PERRL, EOM intact. CARDIOVASCULAR: Normal S1, S2. Regular rate and rhythm. PULMONARY: Clear to auscultation bilaterally. ABDOMEN: Soft, non-distended, non-tender. EXTREMITIES: Normal ROM in all four extremities. No gross deformities. SKIN: Warm, dry. No rash NEUROLOGICAL: No focal neurological deficits. - Medical Decision Making Patient was admitted to Dr. Sanz's service (admitting doctor for Dr. Oswald) . EM resident Dr. Kendra Caal discussed case with Dr. Sanz and case was accepted. <Pricila Andrews - Last Filed: 02/04/19 01:54> Attestations - Attestations 02/03/19 23:13 Documentation prepared by Pricila Andrews, acting as medical office technologist for Sarah Leal MD. <Pricila Andrews - Last Filed: 02/04/19 01:54>
[2019-02-03 22:45] LABS: HEMATOCRIT 35.3 % (32.4-45.2); HEMOGLOBIN 11.7 GM/dL (10.7-15.3); MCHC 33.3 g/dl (32.0-36.0); MEAN CELL VOLUME 81.3 fl (80-96); MEAN PLT VOLUME 8.7 fl (7.5-11.1); PLATELET COUNT 274 K/MM3 (134-434); RBC 4.34 M/mm3 (3.60-5.2); RDW 18.4 % (11.6-15.6); WHITE BLOOD COUNT 5.4 K/mm3 (4.0-10.0)
[2019-02-03 23:25] LABS: ALBUMIN 3.5 g/dl (3.4-5.0); ALK PHOS 74 U/L (45-117); ANION GAP 9 MMOL/L (8-16); BILIRUBIN,TOTAL 0.3 mg/dL (0.2-1); BLOOD UREA NITROGEN 16 mg/dL (7-18); CALCIUM 8.5 mg/dL (8.5-10.1); CHLORIDE 107 mmol/L (98-107); CO2 24 mmol/L (21-32); CREATININE 0.7 mg/dL (0.55-1.3); GLUCOSE,RANDOM 103 mg/dL (74-106); POTASSIUM 3.2 mmol/L (3.5-5.1); SGOT/AST 18 U/L (15-37); SGPT/ALT 22 U/L (13-61); SODIUM 140 mmol/L (136-145); TOT PROT 7.1 g/dl (6.4-8.2)
--- NOTE | 2019-02-04 00:53 | PDOC ---
*Physical Exam - Vital Signs Last Vital Signs Temp Pulse Resp BP Pulse Ox 97.8 F 68 18 173/85 H 98 02/03/19 21:07 02/03/19 21:07 02/03/19 21:07 02/03/19 21:07 02/03/19 21:07 - Physical Exam Comments: 02/04/19 00:52 GENERAL: Awake, alert, and fully oriented, in no acute distress HEAD: No signs of trauma, normocephalic, atraumatic EYES: EOMI, sclera anicteric, conjunctiva clear ENT: oropharynx clear without exudates. Moist mucosa NECK: Normal ROM, supple LUNGS: No distress, speaks full sentences, clear to auscultation bilaterally HEART: Regular rate and rhythm, normal S1 and S2, no murmurs, rubs or gallops, peripheral pulses normal and equal bilaterally. ABDOMEN: Soft, nontender, normoactive bowel sounds. No guarding, no rebound. No masses EXTREMITIES : Normal inspection, Normal range of motion, no edema. No clubbing or cyanosis. NEUROLOGICAL: Cranial nerves II through XII grossly intact. Normal speech, no focal sensorimotor deficits SKIN: Warm, Dry, normal turgor, no rashes or lesions noted ED Treatment Course - LABORATORY CBC & Chemistry Diagram: 02/03/19 22:35 02/03/19 22:35 - ADDITIONAL ORDERS Additional order review: Laboratory Results 02/03/19 02/03/19 02/03/19 22:35 22:35 22:35 D-Dimer 267 Sodium 140 Potassium 3.2 L Chloride 107 Carbon Dioxide 24 Anion Gap 9 BUN 16 Creatinine 0.7 Creat Clearance w eGFR 87.20 Random Glucose 103 Calcium 8.5 Total Bilirubin 0.3 AST 18 ALT 22 Alkaline Phosphatase 74 Troponin I 0.07 H Total Protein 7.1 Albumin 3.5 02/03/19 22:35 RBC 4.34 MCV 81.3 MCHC 33.3 RDW 18.4 H MPV 8.7 Medical Decision Making - Medical Decision Making 02/04/19 02:04 Patient signed out by resident Dr. Huertas In short patient with 10 days of shortness of breath and orthopnea, associated with occaional chest tightness and pressure Patient with elevated trop to 0.07 EKG sinus bradycardia to 57bpm, otherwise wnl ED Course: Patient admitted for tele obs to Dr. Sanz *DC/Admit/Observation/Transfer Diagnosis at time of Disposition: Shortness of breath - Discharge Dispostion Condition at time of disposition: Fair Decision to Admit order: Yes - Referrals - Patient Instructions - Post Discharge Activity
[2019-02-04] MEDS ORDERED: ASPIRIN 81 MG CHEWABLE TABLETS PO ONE (01:02)
[2019-02-04] MEDS ORDERED: ASPIRIN 81 MG CHEWABLE TABLETS ONE ×2 (01:11→10:25)
--- NOTE | 2019-02-04 09:19 | EKG ---
Test Reason : Blood Pressure : / mmHG Vent. Rate : 057 BPM Atrial Rate : 057 BPM P-R Int : 158 ms QRS Dur : 086 ms QT Int : 438 ms P-R-T Axes : 027 -08 -10 degrees QTc Int : 426 ms SINUS BRADYCARDIA NONSPECIFIC T WAVE ABNORMALITY ABNORMAL ECG WHEN COMPARED WITH ECG OF 17-JUL-2017 21:24, NO SIGNIFICANT CHANGE WAS FOUND Confirmed by DONNY WATKINS MD ([id number]) on 02/04/2019 9:19:04 AM Referred By: Confirmed By:DONNY WATKINS MD
[2019-02-04] MEDS ORDERED: METHOCARBAMOL 500 MG TABLET PO PRN (10:08)
[2019-02-04] MEDS ORDERED: ALPRAZolam 0.25 MG TABLET PO SCH (10:15)
[2019-02-04] MEDS ORDERED: HYDROCHLOROTHIAZIDE 25 MG TABLET (FP) ONE (10:25)
[2019-02-04] MEDS ORDERED: PANTOPRAZOLE 40 MG TABLET (FP) ONE (10:25)
[2019-02-04] MEDS ORDERED: ISOSORBIDE MONONITRATE 60 MG TAB.SR.24H (FP) PO ONE (10:25)
[2019-02-04] MEDS: HYDROCHLOROTHIAZIDE 25 MG TABLET (FP) PO SCH (10:36)
[2019-02-04] MEDS: ASPIRIN 81 MG CHEWABLE TABLETS PO SCH (10:36)
[2019-02-04] MEDS: PANTOPRAZOLE 40 MG TABLET (FP) PO SCH (10:36)
[2019-02-04] MEDS: ISOSORBIDE MONONITRATE 30 MG TAB.SR.24H (FP) PO SCH (10:36)
[2019-02-04] MEDS ORDERED: ALPRAZolam 0.25 MG TABLET ONE (10:50)
[2019-02-04] MEDS ORDERED: BUDESONIDE/FORMETEROL FUMARATE 80/4.5 mcg INHALER IH ONE (11:00)
[2019-02-04] MEDS ORDERED: ALBUTEROL SO4 2.5/IPRATROPIUM 0.5 INH SOL 3 ML VIAL.NEB. NEB ONE ×2 (13:23→21:25)
[2019-02-04] MEDS: ALBUTEROL SO4 2.5/IPRATROPIUM 0.5 INH SOL 3 ML VIAL.NEB. NEB SCH ×2 (13:33→22:24)
[2019-02-04] MEDS: hydrALAZINE HCL 25 MG TABLET (FP) PO SCH ×2 (13:33→22:25)
--- NOTE | 2019-02-04 14:42 | ECHO ---
Name: REBEKA SANTOS Exam:Adult Echocardiogram Study Date: 02/04/2019 11:35 AM Age: 53 yrs Reason For Study: RHODES RECENT ONSET Height: 66 in Weight: 245 lb BSA: 2.2 m2 MMode/2D Measurements & Calculations IVSd: 1.0 cm Ao root diam: 2.6 cm LVIDd: 4.4 cm LA dimension: 3.3 cm LVIDs: 2.9 cm LVPWd: 0.95 cm EDV(Teich): 89.1 ml LVOT diam: 2.0 cm ESV(Teich): 33.6 ml Doppler Measurements & Calculations MV E max lars: 50.8 cm/sec Ao V2 max: 167.7 cm/sec MV A max lars: 73.1 cm/sec Ao max P.3 mmHg MV E/A: 0.70 Ao V2 mean: 116.7 cm/sec MV dec time: 0.21 sec Ao mean P.4 mmHg Ao V2 VTI: 30.4 cm LACI(I,D): 2.7 cm2 LACI(V,D): 2.8 cm2 LV V1 max P.1 mmHg SV(LVOT): 81.8 ml LV V1 mean P.9 mmHg LV V1 max: 151.2 cm/sec LV V1 mean: 105.1 cm/sec LV V1 VTI: 25.9 cm PI end-d lars: 104.5 cm/sec Med Peak E' Lars: 5.3 cm/sec Med E/e': 9.6 Lat Peak E' Lars: 9.5 cm/sec Lat E/e': 5.4 Procedure The study was technically difficult with many images being suboptimal in quality. Left Ventricle The left ventricle is normal in size. The left ventricle is hyperdynamic. Ejection Fraction = 75%.. T he transmitral spectral Doppler flow pattern is suggestive of impaired LV relaxation. Right Ventricle The right ventricle is normal in size and function. Atria Normal left and right atrial size and function. Mitral Valve There is mild mitral annular calcification. Tricuspid Valve The tricuspid valve is not well visualized, but is grossly normal. No tricuspid regurgitation. There was insufficient TR detected to calculate RV systolic pressure. Aortic Valve There is mild aortic valve thickening. No hemodynamically significant valvular aortic stenosis. Pulmonic Valve The pulmonic valve is not well visualized. Great Vessels The aortic root is normal size. Pericardium/Pleura Trivial pericardial effusion not hemodynamically significant. Interpretation Summary The study was technically difficult with many images being suboptimal in quality. The left ventricle is normal in size. The left ventricle is hyperdynamic. Ejection Fraction = 75%.. The right ventricle is normal in size and function. Normal left and right atrial size and function. There is mild aortic valve thickening. No hemodynamically significant valvular aortic stenosis. There is mild mitral annular calcification. Trivial pericardial effusion not hemodynamically significant MD Natalia Willis 02/04/2019 02:41 PM
[2019-02-04] MEDS ORDERED: methylPREDNISolone NA SUCC 40 MG/1 ML VIAL ONE (17:18)
[2019-02-04] MEDS: methylPREDNISolone NA SUCC 40 MG/1 ML VIAL IVPUSH SCH (17:30)
[2019-02-04] MEDS ORDERED: METHOCARBAMOL 500 MG TABLET ONE (17:50)
[2019-02-04] MEDS ORDERED: hydrALAZINE HCL 25 MG TABLET (FP) ONE (21:10)
[2019-02-04] MEDS ORDERED: POTASSIUM CHLORIDE TABS 20 MEQ TABLET.ER (FP) PO ONE (21:11)
[2019-02-04] MEDS ORDERED: NIFEdipine E.R. 30 MG TABLET (FP) ONE (21:11)
[2019-02-04] MEDS ORDERED: NIFEdipine E.R. 30 MG TABLET (FP) PO SCH (22:00)
[2019-02-04] MEDS: POTASSIUM CHLORIDE TABS 20 MEQ TABLET.ER (FP) PO SCH (22:25)
--- NOTE | 2019-02-04 23:45 | HP ---
Admitting History and Physical - Admission History of Present Illness: pt is a 53F w/ a history of HTN, asthma, obesity and insomnia who presents for evaluation of 10 days of acute on chronic shortness of breath. The pt reports that she has been experiencing increasing RHODES w/ occasional associated chest tightness/pressure. Recent onset of symptoms are associated with activity -- have not occuered at rest. States that she has been using her home inhaler and nebulizer with minimal relief. At baseline, the pt is able to climb 1 flight of stairs before resting but is now having to rest mid-flight. Endorses dry cough. She also reports intermittent episodes of dizziness which she thinks may be associated with her HTN medications. However, her regimen has been difficult to maintain - and multiple med adjustment have been made. Son with recent PNA however patient denies fever or chills -- +cough non productive History Source: Patient, Family Member Limitations to Obtaining History: No Limitations - Past Medical History Cardiovascular: Yes: HTN, Murmur. No: CHF, [place] Pulmonary: Yes: Asthma. No: Bronchitis, O2 Dependent Gastrointestinal: Yes: GERD Reproductive: Yes: Postmenopausal, Other ( menopausal) ...LMP: 03/01/15 ...: No Musculoskeletal: Yes: Osteoarthritis Endocrine: Yes: Diabetes Mellitus - Past Surgical History Past Surgical History: Yes: None - Smoking History Smoking history: Never smoked Have you smoked in the past 12 months: No Aproximately how many cigarettes per day: 0 - Alcohol/Substance Use Hx Alcohol Use: Yes History of Substance Use: reports: None - Social History Usual Living Arrangement: Yes: With Child ADL: Independent History of Recent Travel: No Home Medications - Allergies Allergies/Adverse Reactions: Allergies Allergy/AdvReac Type Severity Reaction Status Date / Time cephalexin monohydrate AdvReac Severe Nausea Verified 02/03/19 21:10 [From Keflex] - Home Medications Home Medications: Ambulatory Orders Aspirin [ASA -] 81 mg PO DAILY #0 tab.chew 05/13/13 Hydrochlorothiazide [Hctz -] 25 mg PO DAILY #0 tablet 05/13/13 Albuterol Sulfate Inhaler - [Ventolin HFA Inhaler -] 1 - 2 inh IH Q4H PRN Alprazolam [Xanax -] 0.25 mg PO DAILY 06/11/13 Potassium Chloride [K-Dur] 20 meq PO BID 06/13/13 Nifedipine ER [Procardia XL -] 30 mg PO BID 02/25/15 Ranitidine [Zantac -] 150 mg PO BID #8 tablet MDD 2 12/09/16 Isosorbide Mononitrate [Imdur -] 30 mg PO DAILY 07/17/17 hydrALAZINE HCL [Apresoline -] 25 mg PO TID 07/17/17 Sulfamethoxazole/Trimethoprim [Bactrim Ds -] 1 tab PO BID #14 tablet 07/18/17 Amoxicillin/Potassium Clav [Augmentin 875-125 Tablet] 1 each PO ASDIR 12/15/18 Methocarbamol [Robaxin -] 500 mg PO TID PRN #21 tablet 12/15/18 Methylprednisolone [Medrol Dose Matthew] 4 mg PO ASDIR #21 tablet 12/15/18 Review of Systems - Review of Systems Constitutional: reports: Weakness. denies: Chills, Fever, Loss of Appetite, Night Sweats Eyes: reports: No Symptoms. denies: Blurred Vision HENT: reports: No Symptoms Neck: reports: No Symptoms Cardiovascular: reports: Shortness of Breath, Other (RHODES) Respiratory: reports: Cough, Exercise Intolerance, SOB, SOB on Exertion. denies : Snoring, Wheezing Gastrointestinal: denies: Abdominal Pain, Indigestion, Vomiting Genitourinary: reports: No Symptoms Breasts: reports: No Symptoms Reported Musculoskeletal: reports: No Symptoms Integumentary: reports: No Symptoms Neurological: reports: No Symptoms Endocrine: reports: No Symptoms Hematology/Lymphatic: reports: No Symptoms Physical Examination Vital Signs: Vital Signs Temperature 98.4 F 02/04/19 21:07 Pulse Rate 91 H 02/04/19 21:07 Respiratory Rate 20 02/04/19 21:07 Blood Pressure 130/70 02/04/19 21:07 O2 Sat by Pulse Oximetry (%) 98 02/04/19 16:33 Constitutional: Yes: Well Nourished, No Distress, Obese Eyes: Yes: Conjunctiva Clear, EOM Intact HENT: Yes: Atraumatic, Normocephalic Neck: Yes: Supple, Trachea Midline Cardiovascular: Yes: Regular Rate and Rhythm, Murmur (2/6 NATALIA). No: Rub, S3 Respiratory: Yes: Regular, CTA Bilaterally, Cough. No: Accessory Muscle Use, On Nasal O2, SOB, Stridor, Tachypnea Gastrointestinal: Yes: Normal Bowel Sounds, Soft, Abdomen, Obese ...Rectal Exam: Yes: Deferred Renal/: Yes: WNL Breast(s): Yes: WNL Musculoskeletal: Yes: WNL Extremities: Yes: WNL. No: Deformity, Delayed Capillary Refill, Erythema Edema: No Peripheral Pulses WNL: Yes Integumentary: Yes: WNL Neurological: Yes: WNL ...Motor Strength: WNL Psychiatric: Yes: WNL Labs: CBC, BMP 02/03/19 22:35 02/03/19 22:35 Problem List - Problems (1) RHODES (dyspnea on exertion) Code(s): R06.09 - OTHER FORMS OF DYSPNEA (2) Atypical chest pain Code(s): R07.89 - OTHER CHEST PAIN (3) Shortness of breath Code(s): R06.02 - SHORTNESS OF BREATH (4) Chest pain in adult Code(s): R07.9 - CHEST PAIN, UNSPECIFIED (5) Essential hypertension Code(s): I10 - ESSENTIAL (PRIMARY) HYPERTENSION (6) Hypokalemia Code(s): E87.6 - HYPOKALEMIA
[2019-02-05 00:57] VITALS: BMI 41.9
[2019-02-05] MEDS: ALPRAZolam 0.25 MG TABLET PO SCH ×4 (01:16→21:29)
[2019-02-05] MEDS: methylPREDNISolone NA SUCC 40 MG/1 ML VIAL IVPUSH SCH ×3 (01:33→17:46)
[2019-02-05] MEDS: hydrALAZINE HCL 25 MG TABLET (FP) PO SCH ×4 (06:38→21:28)
[2019-02-05 06:58] LABS: BASO % 0.1 % (0-2.0); HEMATOCRIT 35.2 % (32.4-45.2); HEMOGLOBIN 11.8 GM/dL (10.7-15.3); LYMPH % 12.6 % (8-40); MCH 27.2 pg (25.7-33.7); MCHC 33.4 g/dl (32.0-36.0); MEAN CELL VOLUME 81.4 fl (80-96); MEAN PLT VOLUME 9.1 fl (7.5-11.1); MONO % 1.1 % (3.8-10.2); NEUT % 86.2 % (42.8-82.8); PLATELET COUNT 297 K/MM3 (134-434); RBC 4.32 M/mm3 (3.60-5.2); WHITE BLOOD COUNT 8.6 K/mm3 (4.0-10.0)
--- NOTE | 2019-02-05 07:08 | CON.CARD ---
Consult Consult Specialty:: cardiology Reason for Consultation:: Shortness of breath; multiple CAD risks - History of Present Illness Chief Complaint: Pt A&OX3; dyspneic on mild exertion History of Present Illness: Ms Rollins is a 53-year-old black woman with PMHx morbid obesity, CAD (08/2017 Stress MIBI: small area, mildly intense apical ischemia), HTN,DM, hyperlipidemia , sedentary lifestyle, has experienced increasing dyspnea initially was upon exertion but now she is short of breath at rest. ekg is currently sinus bradycardia @ 57 bpm, no ischemia 1st TNI is +. - History Source History Provided By: Patient, Family Member (daughter (at bedside)), Medical Record Limitations to Obtaining History: No Limitations - Past Medical History Cardio/Vascular: Yes: HTN, Murmur. No: CHF, [place] Pulmonary: Yes: Asthma. No: Bronchitis, O2 Dependent Gastrointestinal: Yes: GERD Reproductive: Yes: Postmenopausal ...LMP: 12/25/18 ...: No Musculoskeletal: Yes: Osteoarthritis Endocrine: Yes: Diabetes Mellitus - Past Surgical History Past Surgical History: Yes: None - Alcohol/Substance Use Hx Alcohol Use: Yes History of Substance Use: reports: None - Smoking History Smoking history: Never smoked Have you smoked in the past 12 months: No Aproximately how many cigarettes per day: 0 - Social History ADL: Independent History of Recent Travel: No Home Medications - Allergies Allergies/Adverse Reactions: Allergies Allergy/AdvReac Type Severity Reaction Status Date / Time cephalexin monohydrate AdvReac Severe Nausea Verified 02/03/19 21:10 [From Keflex] - Home Medications Home Medications: Ambulatory Orders Aspirin [ASA -] 81 mg PO DAILY #0 tab.chew 05/13/13 Hydrochlorothiazide [Hctz -] 25 mg PO DAILY #0 tablet 05/13/13 Albuterol Sulfate Inhaler - [Ventolin HFA Inhaler -] 1 - 2 inh IH Q4H PRN Alprazolam [Xanax -] 0.25 mg PO DAILY 06/11/13 Potassium Chloride [K-Dur] 20 meq PO BID 06/13/13 Nifedipine ER [Procardia XL -] 30 mg PO BID 02/25/15 Ranitidine [Zantac -] 150 mg PO BID #8 tablet MDD 2 12/09/16 Isosorbide Mononitrate [Imdur -] 30 mg PO DAILY 07/17/17 hydrALAZINE HCL [Apresoline -] 25 mg PO TID 07/17/17 Sulfamethoxazole/Trimethoprim [Bactrim Ds -] 1 tab PO BID #14 tablet 07/18/17 Amoxicillin/Potassium Clav [Augmentin 875-125 Tablet] 1 each PO ASDIR 12/15/18 Methocarbamol [Robaxin -] 500 mg PO TID PRN #21 tablet 12/15/18 Methylprednisolone [Medrol Dose Matthew] 4 mg PO ASDIR #21 tablet 12/15/18 Vital Signs: Vital Signs Temperature 98.4 F 02/05/19 05:00 Pulse Rate 88 02/05/19 05:00 Respiratory Rate 20 02/05/19 05:00 Blood Pressure 145/82 02/05/19 05:00 O2 Sat by Pulse Oximetry (%) 98 02/05/19 02:00 - Other Data Labs, Other Data: Troponin, BNP 02/04/19 07:12 Troponin I 0.06 H Troponin, BNP 02/04/19 07:12 Troponin I 0.06 H Problem List - Problems (1) HTN (hypertension) Assessment/Plan: change from short-acting nifedipine to amlodipine. On HCTZ, hydralazine, and Imdur. Add ACEI or ARB for HTN, DM. Code(s): I10 - ESSENTIAL (PRIMARY) HYPERTENSION (2) Diabetes Code(s): E11.9 - TYPE 2 DIABETES MELLITUS WITHOUT COMPLICATIONS (3) Hyperlipidemia Code(s): E78.5 - HYPERLIPIDEMIA, UNSPECIFIED (4) Morbid obesity Code(s): E66.01 - MORBID (SEVERE) OBESITY DUE TO EXCESS CALORIES (5) CAD (coronary artery disease) Assessment/Plan: hx mild apical ischemia on 08/2017 stress MIBI. Ongoing uncontrolled cardiac risk factors,including HTN, DM, obesity, sedentary lifestyle, hyperlipidemia. Now with mild increase in TNI; f/u serially, and consider reevaluation of coronary arteries. For coronary angiogram. Code(s): I25.10 - ATHSCL HEART DISEASE OF [place] CORONARY ARTERY W/O ANG PCTRS (6) Shortness of breath Code(s): R06.02 - SHORTNESS OF BREATH (7) Hypokalemia Code(s): E87.6 - HYPOKALEMIA
[2019-02-05 07:11] LABS: ANION GAP 11 MMOL/L (8-16); BLOOD UREA NITROGEN 18 mg/dL (7-18); CALCIUM 9.5 mg/dL (8.5-10.1); CHLORIDE 106 mmol/L (98-107); CO2 23 mmol/L (21-32); CREATININE 1.2 mg/dL (0.55-1.3); GLUCOSE,RANDOM 188 mg/dL (74-106); POTASSIUM 3.5 mmol/L (3.5-5.1); SODIUM 139 mmol/L (136-145)
[2019-02-05] MEDS: ALBUTEROL SO4 2.5/IPRATROPIUM 0.5 INH SOL 3 ML VIAL.NEB. NEB SCH ×4 (07:30→20:56)
[2019-02-05 08:03] LABS: CHOLESTEROL 193 mg/dL (50-200); HDL CHOLESTEROL 55 mg/dL (40-60); TRIGLYCERIDES 63 mg/dL (0-150)
--- NOTE | 2019-02-05 08:18 | PN ---
Progress Note, Physician History of Present Illness: Ms Rollins is a 53-year-old black woman with PMHx morbid obesity, CAD (08/2017 Stress MIBI: small area, mildly intense apical ischemia), HTN,DM, hyperlipidemia , sedentary lifestyle, has experienced increasing dyspnea initially was upon exertion but now she is short of breath at rest. ekg is currently sinus bradycardia @ 57 bpm, no ischemia 1st TNI is +. - Current Medication List Current Medications: Active Medications Albuterol/Ipratropium (Duoneb -) 1 amp NEB RQID [facility] Last Admin: 02/04/19 22:24 Dose: 1 amp Alprazolam (Xanax -) 0.25 mg PO TID [facility] Last Admin: 02/05/19 06:38 Dose: Not Given Amlodipine Besylate (Norvasc -) 10 mg PO DAILY [facility] Aspirin (Asa -) 81 mg PO DAILY [facility] Last Admin: 02/04/19 10:36 Dose: 81 mg Hydralazine HCl (Apresoline -) 25 mg PO TID [facility] Last Admin: 02/05/19 06:57 Dose: Not Given Hydrochlorothiazide (Hctz -) 25 mg PO DAILY [facility] Last Admin: 02/04/19 10:36 Dose: 25 mg Isosorbide Mononitrate (Imdur -) 30 mg PO DAILY [facility] Last Admin: 02/04/19 10:36 Dose: 30 mg Methocarbamol (Robaxin -) 500 mg PO TID PRN PRN Reason: shoulder pain Last Admin: 02/04/19 17:51 Dose: 500 mg Methylprednisolone Sodium Succinate (Solu-Medrol -) 40 mg IVPUSH Q8H-IV [facility] Last Admin: 02/05/19 01:33 Dose: 40 mg Pantoprazole Sodium (Protonix -) 40 mg PO DAILY [facility] Last Admin: 02/04/19 10:36 Dose: 40 mg Potassium Chloride (K-Dur -) 20 meq PO BID [facility] Last Admin: 02/04/19 22:25 Dose: 20 meq - Objective Vital Signs: Vital Signs Temperature 98.4 F 02/05/19 05:00 Pulse Rate 88 02/05/19 05:00 Respiratory Rate 20 02/05/19 05:00 Blood Pressure 145/82 02/05/19 05:00 O2 Sat by Pulse Oximetry (%) 98 02/05/19 02:00 Eyes: Yes: WNL, Conjunctiva Clear, EOM Intact HENT: Yes: WNL, Atraumatic, Normocephalic Neck: Yes: WNL, Supple, Trachea Midline Cardiovascular: Yes: WNL, Regular Rate and Rhythm Respiratory: Yes: WNL, Regular, CTA Bilaterally Gastrointestinal: Yes: WNL, Normal Bowel Sounds Genitourinary: Yes: WNL Musculoskeletal: Yes: WNL Extremities: Yes: WNL Edema: No Integumentary: Yes: WNL Neurological: Yes: WNL, Alert, Oriented ...Motor Strength: WNL Psychiatric: Yes: WNL Labs: CBC, BMP 02/05/19 05:30 02/05/19 05:30 Assessment/Plan - Problems (1) HTN (hypertension) Assessment/Plan: change from short-acting nifedipine to amlodipine. On HCTZ, hydralazine, and Imdur. Add ACEI or ARB for HTN, DM. Code(s): I10 - ESSENTIAL (PRIMARY) HYPERTENSION (2) Diabetes Code(s): E11.9 - TYPE 2 DIABETES MELLITUS WITHOUT COMPLICATIONS (3) Hyperlipidemia Code(s): E78.5 - HYPERLIPIDEMIA, UNSPECIFIED (4) Morbid obesity Code(s): E66.01 - MORBID (SEVERE) OBESITY DUE TO EXCESS CALORIES (5) CAD (coronary artery disease) Assessment/Plan: hx mild apical ischemia on 08/2017 stress MIBI. will add Lopressor and lipitor Ongoing uncontrolled cardiac risk factors,including HTN, DM, obesity, sedentary lifestyle, hyperlipidemia. Now with mild increase in TNI; f/u serially, and consider reevaluation of coronary arteries. C. cath in am Code(s): I25.10 - ATHSCL HEART DISEASE OF [place] CORONARY ARTERY W/O ANG PCTRS (6) Shortness of breath Code(s): R06.02 - SHORTNESS OF BREATH (7) Hypokalemia Code(s): E87.6 - HYPOKALEMIA
[2019-02-05 08:29] LABS: MAGNESIUM 1.9 mg/dL (1.8-2.4)
[2019-02-05] MEDS: ISOSORBIDE MONONITRATE 30 MG TAB.SR.24H (FP) PO SCH (09:54)
[2019-02-05] MEDS: HYDROCHLOROTHIAZIDE 25 MG TABLET (FP) PO SCH (09:54)
[2019-02-05] MEDS: ASPIRIN 81 MG CHEWABLE TABLETS PO SCH (09:54)
[2019-02-05] MEDS: amLODIPine BESYLATE 10 MG TABLET (FP) PO SCH (09:56)
[2019-02-05] MEDS: PANTOPRAZOLE 40 MG TABLET (FP) PO SCH (09:56)
[2019-02-05] MEDS: POTASSIUM CHLORIDE TABS 20 MEQ TABLET.ER (FP) PO SCH ×2 (09:57→21:28)
--- NOTE | 2019-02-05 10:40 | EKG ---
Test Reason : Blood Pressure : / mmHG Vent. Rate : 098 BPM Atrial Rate : 098 BPM P-R Int : 170 ms QRS Dur : 090 ms QT Int : 360 ms P-R-T Axes : 046 -13 007 degrees QTc Int : 459 ms NORMAL SINUS RHYTHM POSSIBLE LEFT ATRIAL ENLARGEMENT LEFT VENTRICULAR HYPERTROPHY NONSPECIFIC ST ABNORMALITY ABNORMAL ECG WHEN COMPARED WITH ECG OF 03-FEB-2019 22:40, VENT. RATE HAS INCREASED BY 41 BPM Confirmed by HARRISON ARMSTRONG, PATRICIA ([id number]) on 02/05/2019 10:39:54 AM Referred By: Genny COUGHLIN Confirmed By:PATRICIA TERRY MD
[2019-02-05] MEDS: METOPROLOL TARTRATE 25 MG TABLET (FP) PO SCH ×2 (12:34→21:29)
[2019-02-05] MEDS ORDERED: IBUPROFEN 400 MG TABLET (FP) PO ONE (20:30)
[2019-02-05] MEDS: ATORVASTATIN CA 40 MG TABLET (FP) PO SCH (21:28)
[2019-02-06] MEDS: methylPREDNISolone NA SUCC 40 MG/1 ML VIAL IVPUSH SCH ×4 (01:01→18:13)
[2019-02-06] MEDS: hydrALAZINE HCL 25 MG TABLET (FP) PO SCH ×3 (06:28→22:20)
[2019-02-06] MEDS: ALPRAZolam 0.25 MG TABLET PO SCH ×3 (06:28→22:23)
[2019-02-06] MEDS: ALBUTEROL SO4 2.5/IPRATROPIUM 0.5 INH SOL 3 ML VIAL.NEB. NEB SCH ×4 (07:28→21:01)
--- NOTE | 2019-02-06 09:31 | PN ---
Progress Note (short form) - Note Progress Note: patient seen and examined in her room daughter at bedside recent eval by cardio today recommend Cardiac Cath -- patient with multiple questions and concerns -- all answered Dr Benoit contacted and will further discuss with patient patient reports episodes of SOB earlier in the am - resolved with neb treatment now reports reports no CP / SOB / or chest discomfort Vital Signs Period Temp Pulse Resp BP Sys/Trevino Pulse Ox Last 24 Hr 98.1 F-99.0 F 91-120 20-22 121-164/65-104 94-96 neck supple -JVD heart S1/S2 2/6 NATALIA lungs clear bilat abd obese ext no edema / FROM CBC, BMP 02/05/19 05:30 02/05/19 05:30 Tropononin 0.05 medications reviewed and being adjusted by cardio BP remains uncontrolled Dr Benoit notified regarding Cath / medication changes and patients concerns Problem List - Problems (1) RHODES (dyspnea on exertion) Code(s): R06.09 - OTHER FORMS OF DYSPNEA (2) Atypical chest pain Code(s): R07.89 - OTHER CHEST PAIN (3) Shortness of breath Code(s): R06.02 - SHORTNESS OF BREATH (4) Chest pain in adult Code(s): R07.9 - CHEST PAIN, UNSPECIFIED (5) Essential hypertension Code(s): I10 - ESSENTIAL (PRIMARY) HYPERTENSION (6) Hypokalemia Code(s): E87.6 - HYPOKALEMIA
[2019-02-06] MEDS: POTASSIUM CHLORIDE TABS 20 MEQ TABLET.ER (FP) PO SCH ×2 (10:06→22:22)
[2019-02-06] MEDS: ISOSORBIDE MONONITRATE 30 MG TAB.SR.24H (FP) PO SCH (10:06)
[2019-02-06] MEDS: PANTOPRAZOLE 40 MG TABLET (FP) PO SCH (10:07)
[2019-02-06] MEDS: ASPIRIN 81 MG CHEWABLE TABLETS PO SCH (10:07)
[2019-02-06] MEDS: HYDROCHLOROTHIAZIDE 25 MG TABLET (FP) PO SCH (10:07)
[2019-02-06] MEDS: amLODIPine BESYLATE 10 MG TABLET (FP) PO SCH (10:07)
[2019-02-06] MEDS: METOPROLOL TARTRATE 25 MG TABLET (FP) PO SCH ×2 (10:08→22:23)
[2019-02-06] MEDS ORDERED: ACETAMINOPHEN/CAFFEINE/BUTALBITAL 1 TAB PO PRN (12:43)
--- NOTE | 2019-02-06 12:45 | PN ---
Progress Note (short form) - Note Progress Note: patient seen and examined in her room daughter at bedside await Cardiology evaluation today more questions regarding Cath - will defer to Dr Benoit denies SOB/Chest pain / no RHODES - however has only ambulated with in room Vital Signs Period Temp Pulse Resp BP Sys/Trevino Pulse Ox Last 24 Hr 98.1 F-98.7 F 91-120 20-20 121-158/65-88 95-96 neck supple -JVD heart S1/S2 2/6 NATALIA lungs clear bilat abd obese ext +1 edema / FROM CBC, BMP 02/05/19 05:30 02/05/19 05:30 Tropononin 0.05 (02/05/19) medications reviewed and being adjusted by cardio BP remains uncontrolled Dr Benoit notified regarding Cath / medication changes and patients concerns # Chest pain / RHODES multi factorial CAD / HTN / Morbid obesity / asthma / DM plans for Cath per cardiology # Asthma remains on steroids / nebulizer tx both marcelino and prn PPI will taper as tolerated # HTN poorly controlled multiple medication intolerance meds adjusted per cardio -- avoid BB - in the past patient reports has exacerbated her Asthma #Morbid obesity extensive discussion on weight loss 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
[2019-02-06] MEDS: MOMETASONE FUROATE 220 MCG/IH INHALER IH SCH (22:22)
[2019-02-06] MEDS: NIFEdipine E.R. 30 MG TABLET (FP) PO SCH (22:23)
[2019-02-06] MEDS: ATORVASTATIN CA 40 MG TABLET (FP) PO SCH (22:26)
[2019-02-07] MEDS: methylPREDNISolone NA SUCC 40 MG/1 ML VIAL IVPUSH SCH ×2 (03:15→10:42)
[2019-02-07 06:26] LABS: HEMATOCRIT 37.8 % (32.4-45.2); HEMOGLOBIN 11.9 GM/dL (10.7-15.3); LYMPH % 10.6 % (8-40); MCH 25.1 pg (25.7-33.7); MCHC 31.4 g/dl (32.0-36.0); MEAN CELL VOLUME 79.9 fl (80-96); MONO % 3.2 % (3.8-10.2); NEUT % 86.2 % (42.8-82.8); PLATELET COUNT 321 K/MM3 (134-434); RBC 4.74 M/mm3 (3.60-5.2); RDW 18.2 % (11.6-15.6); WHITE BLOOD COUNT 12.3 K/mm3 (4.0-10.0)
[2019-02-07] MEDS: ALPRAZolam 0.25 MG TABLET PO SCH ×3 (06:32→13:21)
[2019-02-07] MEDS: hydrALAZINE HCL 25 MG TABLET (FP) PO SCH ×3 (06:32→13:20)
[2019-02-07 06:59] LABS: ANION GAP 5 MMOL/L (8-16); BLOOD UREA NITROGEN 27 mg/dL (7-18); CALCIUM 9.7 mg/dL (8.5-10.1); CHLORIDE 102 mmol/L (98-107); CO2 28 mmol/L (21-32); GLUCOSE,RANDOM 155 mg/dL (74-106); POTASSIUM 3.7 mmol/L (3.5-5.1); SODIUM 135 mmol/L (136-145)
[2019-02-07] MEDS: ALBUTEROL SO4 2.5/IPRATROPIUM 0.5 INH SOL 3 ML VIAL.NEB. NEB SCH ×2 (07:30→11:33)
[2019-02-07 09:47] VITALS: BP 141/77; PULSE 112; TEMP 98
[2019-02-07] MEDS: NIFEdipine E.R. 30 MG TABLET (FP) PO SCH (10:45)
[2019-02-07] MEDS: PANTOPRAZOLE 40 MG TABLET (FP) PO SCH (10:45)
[2019-02-07] MEDS: ISOSORBIDE MONONITRATE 30 MG TAB.SR.24H (FP) PO SCH (10:45)
[2019-02-07] MEDS: HYDROCHLOROTHIAZIDE 25 MG TABLET (FP) PO SCH (10:45)
[2019-02-07] MEDS: POTASSIUM CHLORIDE TABS 20 MEQ TABLET.ER (FP) PO SCH (10:45)
[2019-02-07] MEDS: MOMETASONE FUROATE 220 MCG/IH INHALER IH SCH (10:46)
[2019-02-07] MEDS: ASPIRIN 81 MG CHEWABLE TABLETS PO SCH (10:46)
[2019-02-07] MEDS: METOPROLOL TARTRATE 25 MG TABLET (FP) PO SCH (10:46)
== END 2019-02-07 14:57 ==
LOC: JER 21:03 → JERBED 02-04 01:51 → J4W 02-05 00:16
PROVIDERS: ADMIT Family Medicine; ATTEND Family Medicine
PROC: 3E0333Z Introduction of Anti-inflammatory into Peripheral Vein, Percutaneous Approach (ICD-10-PCS; principal; 2019-02-04)
PROC: 3E0F7GC Introduction of Other Therapeutic Substance into Respiratory Tract, Via Natural or Artificial Opening (ICD-10-PCS; 2019-02-04)
DX: R06.02 Shortness of breath (principal); R06.00 Dyspnea, unspecified; I10 Essential (primary) hypertension; E78.5 Hyperlipidemia, unspecified; E87.6 Hypokalemia; J45.909 Unspecified asthma, uncomplicated; G47.00 Insomnia, unspecified; F41.9 Anxiety disorder, unspecified; I25.10 Atherosclerotic heart disease of native coronary artery without angina pectoris; E11.9 Type 2 diabetes mellitus without complications; R07.89 Other chest pain; R00.1 Bradycardia, unspecified; R01.1 Cardiac murmur, unspecified; K21.9 Gastro-esophageal reflux disease without esophagitis; M19.90 Unspecified osteoarthritis, unspecified site; E66.01 Morbid (severe) obesity due to excess calories; Z68.41 Body mass index [BMI] 40.0-44.9, adult; Z88.1 Allergy status to other antibiotic agents; Z79.82 Long term (current) use of aspirin
CPT/HCPCS: 36415; 71046-TC-FY; 80048; 80053; 80061; 83036; 83721; 83735; 84484; 85025; 85027; 85379; 93005; 93010; 93306-TC; 94640; 96374; 99285-25; G0378

== ENCOUNTER 2021-08-11 19:52 | Emergency (ER) | payer OTHER ==
[2021-08-11 20:38] VITALS: PULSE 76; TEMP 98.1; BMI 42.3
[2021-08-11] MEDS ORDERED: ALBUTEROL SO4 2.5/IPRATROPIUM 0.5 INH SOL 3 ML VIAL.NEB. NEB ONE (21:56)
[2021-08-11] MEDS: ALBUTEROL SO4 2.5/IPRATROPIUM 0.5 INH SOL 3 ML VIAL.NEB. NEB SCH ×2 (21:56→22:10)
[2021-08-11 22:17] LABS: BASO % 0.6 % (0-2.0); EOS % 1.9 % (0-4.5); HEMATOCRIT 35.1 % (32.4-45.2); HEMOGLOBIN 11.6 GM/dL (10.7-15.3); LYMPH % 34.5 % (8-40); MCH 26.4 pg (25.7-33.7); MCHC 33.1 g/dl (32.0-36.0); MEAN CELL VOLUME 79.8 fl (80-96); MEAN PLT VOLUME 8.2 fl (7.5-11.1); MONO % 7.9 % (3.8-10.2); NEUT % 55.1 % (42.8-82.8); PLATELET COUNT 288 10^3/uL (134-434); RBC 4.39 M/mm3 (3.60-5.2); RDW 17.6 % (11.6-15.6); WHITE BLOOD COUNT 6.5 K/mm3 (4.0-10.0)
[2021-08-11 22:25] LABS: INR 0.99 (0.83-1.09); PROTHROMBIN TIME (PATIENT) 12.2 SEC (9.7-13.0)
[2021-08-11 22:28] LABS: ACTIVATED PTT 31.5 SECONDS (25.2-36.5)
[2021-08-11 22:37] LABS: CHLORIDE 109 mmol/L (98-107); SODIUM 142 mmol/L (136-145)
[2021-08-11 22:39] LABS: ALBUMIN 3.6 g/dl (3.4-5.0); ANION GAP 9 MMOL/L (8-16); BLOOD UREA NITROGEN 15.8 mg/dL (7-18); CALCIUM 8.7 mg/dL (8.5-10.1); CO2 25 mmol/L (21-32)
[2021-08-11 22:40] LABS: GLUCOSE,RANDOM 88 mg/dL (74-106)
[2021-08-11 22:42] LABS: SGOT/AST 10 U/L (15-37); SGPT/ALT 19 U/L (13-61)
[2021-08-11 22:43] LABS: CREATININE 0.8 mg/dL (0.55-1.3)
[2021-08-11 22:44] LABS: BILIRUBIN,TOTAL 0.2 mg/dL (0.2-1); TOT PROT 7.2 g/dl (6.4-8.2)
[2021-08-11 22:45] LABS: ALK PHOS 98 U/L (45-117)
[2021-08-12] MEDS: ALBUTEROL SO4 2.5/IPRATROPIUM 0.5 INH SOL 3 ML VIAL.NEB. NEB SCH (01:02)
[2021-08-12 01:55] VITALS: BP 168/94
== END 2021-08-12 01:56 | disposition home or self-care (01) ==
LOC: JER 19:52
DX: J45.901 Unspecified asthma with (acute) exacerbation (principal)
CPT/HCPCS: 36415; 71046-TC-FY; 80053; 82550; 84484; 85025; 85610; 85730; 93005; 93010; 93970-TC; 99285-25; C9803; U0003; U0005